=== PATIENT | female | born 1980 | race Caucasian/White ===

== ENCOUNTER 2016-11-25 09:45 | Outpatient (CLI) | payer OTHER ==
--- NOTE | 2016-11-25 10:31 | DIAGNOSTIC IMAGING REPORT ---
PROCEDURE: XR LUMBAR SPINE 5 VIEWS INDICATION: LOW BACK PAIN, R HIP PAIN, INTERMIT R RADIC X 2 YRS TECHNIQUE: Five views. COMPARISON: None. FINDINGS: Mild spondylosis at L1-2 with degenerative spur formation. IMPRESSION: 1. Mild spondylosis L1-2
--- NOTE | 2016-11-25 10:32 | DIAGNOSTIC IMAGING REPORT ---
PROCEDURE: XR HIP 2VW W W/O AP PELVIS-RT INDICATION: LOW BACK PAIN, R HIP PAIN, INTERMIT R RADIC X 2 YRS TECHNIQUE: AP view of the pelvis and hips with lateral view of the right hip. COMPARISON: None. FINDINGS: Right HIP: Osseous structures and joint spaces are normal. PELVIS: Osseous pelvis is normal. IMPRESSION: 1. Negative pelvis and right hip.
== END 2016-11-25 23:00 ==
LOC: XR SRH 09:45
DX: M47.816 Spondylosis without myelopathy or radiculopathy, lumbar region (principal); M25.551 Pain in right hip

== ENCOUNTER 2017-01-19 08:20 | Emergency (ER) | payer OTHER ==
--- NOTE | 2017-01-19 09:49 | DIAGNOSTIC IMAGING REPORT ---
PROCEDURE: CT ABDOMEN/PELVIS W/O CONTRAST INDICATION: ABDO PAIN, HX OF HYSTERECTOMY TECHNIQUE: Axial CT images were obtained through the abdomen and pelvis without IV contrast. Coronal and sagittal reformations were created. COMPARISON: 04/28/2012 FINDINGS: Clear lung bases. Normal sized heart. No hiatal hernia. Status post cholecystectomy. The unenhanced appearance of the liver, adrenal glands, kidneys, pancreas and spleen is normal. No intrarenal, ureteral calculi, or hydronephrosis. The abdominal aorta is normal in its course and caliber. There are no suspicious calcifications, retroperitoneal adenopathy or masses. The stomach, upper bowel loops, and mesentery are normal. Intact anterior abdominal wall. No free fluid or inflammation. Status post hysterectomy and right oophorectomy. The left ovary appears normal. The unenhanced appearance of the urinary bladder, pelvic vessels, and pelvic bowel loops is normal. Normal appendix. No suspicious calcifications, free pelvic fluid or mass. Intact osseous structures. IMPRESSION: 1. No acute process. 2. Status post hysterectomy and cholecystectomy. 3. Findings called to the emergency room. All CT scans at this facility use dose modulation, iterative reconstruction, and/or weight-based dosing when appropriate to reduce radiation dose to as low as reasonably achievable.
--- NOTE | 2017-01-19 11:51 | ED CLINICAL REPORT ---
Clinical Report - Physicians/Mid Levels [facility] [address] [place] [address] 01/19/2017 8:21 Patient: AFIA BAIRD Arrived- By private vehicle. Historian- patient. HISTORY OF PRESENT ILLNESS Chief Complaint: ABDOMINAL PAIN. This started today and is still present (staying the same). It was abrupt in onset and has been intermittent but is not gone now. At its maximum, severity described as moderate. When seen in the E.D., severity described as moderate. Modifying factors- worsened by movement and walking. Relieved by rest. It is described as sharp. No radiation. It is described as located in the left lower quadrant. The patient has had nausea. No loss of appetite, vomiting or diarrhea. No additional abdominal pain. (reports some discomfort after urinating and reports still having the urge to urinate after voiding). No recent travel. Similar symptoms previously: None. Recent medical care: Not recently seen/assessed. REVIEW OF SYSTEMS No constipation, black stools, bloody stools, fever or chest pain. No difficulty breathing or skin rash. All systems otherwise negative, except as recorded above. PAST HISTORY See nurses notes. Medications: DHEA Oral. 5HTP. Ibuprofen Oral. Muscle Relaxant. Topamax Oral. Allergies: No Known Drug Allergy. SOCIAL HISTORY Never smoker. Occasional alcohol use. No drug use. No recent travel. Is a local resident. ADDITIONAL NOTES The nursing notes have been reviewed. PHYSICAL EXAM Vital Signs: 01/19/2017 08:30 BP: 134/84. HR: 76. RR: 18. O2 saturation: 97%. Temp: 97.7 F. Blood pressure normal. Oxygen saturation normal. Appearance: Alert. Oriented X3. No acute distress. (pleasant, cooperative, non-toxic). Eyes: Pupils equal, round and reactive to light. Eyes normal inspection. (glasses). CVS: Normal heart rate and rhythm. Heart sounds normal. Pulses normal. Respiratory: No respiratory distress. Breath sounds normal. Chest nontender. Abdomen: Soft and nontender. Bowel sounds normal. No mass. Back: Normal inspection. No CVA tenderness. Skin: Skin warm and dry. Normal skin color. No rash. Normal skin turgor. Extremities: Extremities exhibit normal ROM. No lower extremity edema. LABS, X-RAYS, AND EKG Abdominal CT: PROCEDURE: CT ABDOMEN/PELVIS W/O CONTRAST INDICATION: ABDO PAIN, HX OF HYSTERECTOMY TECHNIQUE: Axial CT images were obtained through the abdomen and pelvis without IV contrast. Coronal and sagittal reformations were created. COMPARISON: 04/28/2012 FINDINGS: Clear lung bases. Normal sized heart. No hiatal hernia. Status post cholecystectomy. The unenhanced appearance of the liver, adrenal glands, kidneys, pancreas and spleen is normal. No intrarenal, ureteral calculi, or hydronephrosis. The abdominal aorta is normal in its course and caliber. There are no suspicious calcifications, retroperitoneal adenopathy or masses. The stomach, upper bowel loops, and mesentery are normal. Intact anterior abdominal wall. No free fluid or inflammation. Status post hysterectomy and right oophorectomy. The left ovary appears normal. The unenhanced appearance of the urinary bladder, pelvic vessels, and pelvic bowel loops is normal. Normal appendix. No suspicious calcifications, free pelvic fluid or mass. Intact osseous structures. IMPRESSION: 1. No acute process. 2. Status post hysterectomy and cholecystectomy. Study type: abdomen and pelvis. Abdominal CT performed without contrast. The study was independently viewed by me, interpreted by the radiologist and discussed with the radiologist. Pelvic Sonogram: An ovarian cyst is present. No intrauterine . normal flow. no torsion. The study was independently viewed by me and interpreted contemporaneously by me. Laboratory Tests: UA-Culture if indicated: (PRICE: 01/19/2017 09:20) ( MsgRcvd 01/19/2017 09:39) Final results Test Result Flag Units (Reference) URINE COLOR STRAW URINE APPEARANCE CLEAR URINE GLUCOSE NEGATIVE (NEGATIVE) URINE BILIRUBIN NEGATIVE (NEGATIVE) URINE KETONE NEGATIVE (NEGATIVE) URINE SPECIFIC GRAVITY <= 1.005 L (1.010-1.030) URINE PH 7.0 (5.0-8.0) URINE PROTEIN NEGATIVE (NEGATIVE) URINE UROBILINOGEN 0.2 EU/dL (0.2-1.0) URINE NITRITE NEGATIVE (NEGATIVE) URINE BLOOD NEGATIVE (NEGATIVE) URINE LEUK ESTERASE NEGATIVE (NEGATIVE) URINE RBC NONE SEEN rbc/hpf (0-1) URINE WBC NONE SEEN wbc/hpf (0-1) URINE EPITHELIAL CELLS 1-3 EPI/hpf (0-5) URINE BACTERIA MODERATE (2+ TO 3+) (NONE SEEN) URINE COMMENT CULTURE INDICATED URINE CULTURES ARE SET-UP BASED ON THE FOLLOWING CRITERIA:POSITIVE NITRITEPOSITIVE LEUKOCYTE ESTERASEGREATER THAN 10 WHITE BLOOD CELLSMODERATE (2+) OR GREATER BACTERIA Urine: (PRICE: 01/19/2017 09:20) [facility] [place] [facility] Final results Test Result Flag Units (Reference) URINE NEGATIVE CBC w Diff: (PRICE: 01/19/2017 09:30) ( [facility] [place] 09[facility]53[facility] Final results Test Result Flag Units (Reference) WHITE BLOOD COUNT 7.7 K/uL (4.5-11.5) RED BLOOD COUNT 4.35 M/uL (4.00-5.20) HEMOGLOBIN 14.4 gm/dL (12.0-16.0) HEMATOCRIT 41.5 % (36.0-46.0) MEAN CELL VOLUME 96 fL (80-100) MEAN CORPUSCULAR HGB 33 pg (26-34) MEAN CORPUSCULAR HGB CONC 35 g/dL (31-37) RED CELL DISTRIBUTION WIDTH 12.1 % (11.6-14.8) PLATELET COUNT 289 K/uL (150-400) NEUTROPHIL % 61.6 % (50-75) LYMPH % 31.5 % (25-40) MONO % 4.7 % (3-14) EOSINOPHIL % 2.0 % (0-4) BASOPHIL % 0.2 % (0-2) CMP: (PRICE: 01/19/2017 09:30) ( [facility] [place] 10:01) Final results Test Result Flag Units (Reference) GLUCOSE 96 mg/dL (70-110) BUN 12 mg/dL (7-18) CREATININE 0.8 mg/dL (0.6-1.3) Estimated GFR >60 mL/min Estimated GFR- >60 mL/min Note: Persistent reduction over 3 months in eGFR<60 mL/min/1.73 m2 defines CKD. Patients with eGFR values>=60 mL/min/1.73 m2 may also have CKD if evidence ofpersistent proteinuria. Additional information may be foundat [email or web address]. SODIUM 140 mmol/L (136-145) POTASSIUM 3.7 mmol/L (3.5-5.1) CHLORIDE 106 mmol/L (98-107) CARBON DIOXIDE 24 mmol/L (21-32) CALCIUM 9.0 mg/dL (8.5-10.1) TOTAL PROTEIN 7.3 g/dL (6.4-8.2) ALBUMIN 3.8 g/dL (3.3-5.0) BILIRUBIN, TOTAL 0.5 mg/dL (0.0-1.0) ALKALINE PHOSPHATASE 89 U/L (46-116) AST (SGOT) 17 U/L (15-37) ALT (SGPT) 18 U/L (12-78) LIPASE 117 U/L (73-393) . PROGRESS AND PROCEDURES Course of Care: the patient is a pleasant 36-year-old female presented for evaluation of left lower quadrant abdominal pain. The patient is resting in bed and in no acute distress. Patient is nontoxic. Differential diagnoses at this time includes urinary tract infection, ovarian cysts, and renal colic. Do not feel patient has ovarian torsion. Do not feel patient has dissecting aortic aneurysm. I discussion with patient in regards to ultrasound versus CT scan of the abdomen and pelvis. Patient elected for CT scan of the abdomen and pelvis. Patient reports that the pain she is currently experiencing is different from the cyst pain that she's had in the past. Patient reports having a history of hysterectomy. Do not feel there is a need to wait for urine test at this time. Laboratory studies have been ordered. Patient is agreeable to the treatment and plan. the patient's CT scan does not show any acute abnormalities. The ovaries noted to be slightly high up on CT scan however no significant abnormalities again noted. The patient'berlin was not significantly improved with the pain medication provided. Toradol was been given. Because the blood flow to the ovary has not been completely evaluated with CT scan, feel that torsion is still on the differential diagnosis. I discussion with patient in regards toultrasound of theovary. Patient is agreeable to this. Because the patient's left ovary is the only one that she notes to be left, do not patient's to havetreatment for menopause. Ultrasound ordered. Workup does not show any acute abdomen maladies except for corpus luteal cyst which isotherwise physiologically normal. Patient's pain is significantly improved. Patient is tolerating by mouth hydration and crackers with sandwich. Patient is smiling and in no acute distress. We had a discussion in regards to the recent snowfall in the area. Do not fill patient needs to be admitted to the hospital require further emergency department workup/evaluation. Discussed with patient workup diagnosis, home care, follow-up, and return precautions. All questions have been answered. The patient expressed understanding of these instructions and was agreeable to them. Disposition: Discharged. Condition: good. CLINICAL IMPRESSION Acute left lower quadrant abdominal pain. 01/19/2017 08:30 BP: 134/84. HR: 76. RR: 18. O2 saturation: 97%. Temp: 97.7 F. Blood pressure normal. Oxygen saturation normal. Single corpus luteum left ovarian cyst. INSTRUCTIONS Warnings: GENERAL WARNINGS: Return or contact your physician immediately if your condition worsens or changes unexpectedly, if not improving as expected, or if other problems arise. SPECIFICALLY, return if you develop pain, fever, vomiting, the inability to keep fluids down, blood in vomitus, blood in diarrhea, fainting or lightheadedness. Your Current Medications: CONTINUE TAKING THE FOLLOWING MEDICATIONS: 5HTP*. DHEA Oral. Ibuprofen Oral. Muscle Relaxant*. Topamax Oral. Prescription Medications: Motrin 600 mg tablets: take 1 tablet orally every 6 hours as needed for pain, stiffness or swelling. Dispense thirty (30). No refill. Substitution is permissible. (take with food) Percocet 5 mg/325 mg: take 1 tablet orally every 6 hours. Dispense ten (10). No refill. Substitution is permissible. Follow-up: Return to the emergency department as needed. Follow up with your doctor in three days. Reason for referral: recheck today's concerns. Summary of care provided to patient via paper. Screening today revealed the patient's blood pressure to be in the normal range. The patient should follow up with a primary care provider for blood pressure management. Understanding of the discharge instructions verbalized by patient. (Electronically signed by Chris Louis Dr. 01/21/2017 1:35)
--- NOTE | 2017-01-19 11:51 | ED NURSING NOTES ---
Clinical Report - Nurses [place] [address] [place] [address] 01/19/2017 8:21 [id number] Triage time 08:Jan 19 2017. Acuity: LEVEL 3. Chief Complaint: ABDOMINAL PAIN and NAUSEA. ARTEMIO COMA SCORE: Artemio Coma Scale: 15- eyes open spontaneously (4); best verbal response- oriented x 4 (5); best motor response- obeys commands (6). --08:36 Jeanne Fatima R.N. 08:30 01/19/17. BP: 134/84. HR: 76. RR: 18. O2 saturation: 97%. Temp: 97.7 F. Pain level now 5/10. --08:36 Jeanne Fatima R.N. Weight: 130.6 kg. Height/Length: 67 inches. BMI: 45.1. --08:35 Jeanne Fatima R.N. Medications Topamax Oral. --08:31 Jeanne Fatima R.N. Muscle Relaxant. --08:32 Jeanne Fatima R.N. Ibuprofen Oral. --08:32 Jeanne Fatima R.N. 5HTP. --08:32 Jeanne Fatima R.N. DHEA Oral. --08:32 Jeanne Fatima R.N. Allergies No Known Drug Allergy. --08:33 Jeanne Fatima R.N. History Arrived by private vehicle. Historian: patient. Accompanied by family. The patient has had nausea and moderate, colicky, constant abdominal pain. The pain is described as located in the LLQ and associated with nausea. No vomiting, diarrhea or constipation. Treatment BAG FILLER: None. PAST MEDICAL HX: Immunizations: up-to-date. SOCIAL HX: Never smoker. Occasional alcohol use; consumes beer occasionally. Last drink was 1 months ago. No drug use. No known contact with a sick individual. SELF HARM ASSESSMENT: A self harm assessment was performed. The patient answered "no" to the question "Have you recently felt down, depressed, or hopeless?" and "Do you have thoughts of harming or killing yourself?". FALL RISK ASSESSMENT: Fall risk assessment completed. No fall risk identified. NUTRITIONAL RISK ASSESSMENT: The nutritional risk assessment revealed no deficiencies. FUNCTIONAL ASSESSMENT: Functional assessment: no impairments noted. LEARNING NEEDS ASSESSMENT: The learning needs assessment revealed no barriers. ABUSE ASSESSMENT: Abuse assessment: (yes) The patient was asked "Do you feel safe in your home?". SKIN INTEGRITY ASSESSMENT: Skin integrity risk assessment completed. No skin integrity risk identified. --08:36 Jeanne Fatima R.N. PROBLEMS: Spinal Stenosis. Buldging disk . Fibromyalgia. Back Pain. LNMP - Last Normal Menstrual Period. Cholelithiasis. Gastroesophageal Reflux Disease. Immunizations. --08:34 Jeanne Fatima R.N. ADDITIONAL SURGERIES: Cholecystectomy. Hysterectomy. Tubal Ligation. --08:34 Jeanne Fatima R.N. Interventions ID band on patient. --08:36 Jeanne Fatima R.N. PHYSICAL ASSESSMENT Ambulatory to room. GENERAL / NEURO / PSYCH: Alert. Oriented X 4. Appears in pain. HEENT: Mucous membranes are pink. RESPIRATORY: Respirations not labored. Breath sounds within normal limits. CVS: Normal sinus rhythm noted. Capillary refill less than 2 seconds. GI / : Abdominal tenderness in the left lower quadrant. Bowel sounds within normal limits. ( last BM this am states normal for her). SKIN: Skin is warm and dry. --08:37 Jeanne Fatima R.N. NURSING PROGRESS NOTES The initial plan of care for this patient includes an assessment with efforts to address patient positioning and appropriate ambient lighting; impairment of the gastrointestinal system. Pulse oximeter and NIBP monitor placed on patient. Patient gowned. Head of bed elevated (45). Reassurance given. Call light placed in reach. Side rails up x 1. Bed placed in lowest position. Brakes of bed on. --08:38 Jeanne Fatima R.N. 09:40 01/19/2017 Site #1 started via IV in the right antecubital space with an 20g angiocath, with aseptic technique and good blood return; one attempt. Blood drawn: rainbow set. Labeled in the presence of the patient and sent to the lab. Saline lock flushed with 10 mL saline. --10:05 Jeanne Fatima R.N. 09:40 01/19/2017 Started bag #1 1000 mL IV Fluids IV NS (Saline); at 999 mL/hr over 1 hour(s) via site #1 via IV pump. Allergies verified and confirmed 5 rights. IV patency established. IV site checked: no pain, redness, or swelling. IV flushed thoroughly pre- and post-medication administration. --10:05 Jeanne Fatima R.N. 09:40 01/19/2017 Zofran (Ondansetron HCl) IVP 4 mg given over 2 minute(s) via site #1. Allergies verified and confirmed 5 rights. IV patency established. IV site checked: no pain, redness, or swelling. IV flushed thoroughly pre- and post-medication administration. --10:05 Jeanne Fatima R.N. 09:50 01/19/2017 Dilaudid (HYDROmorphone HCl PF) IVP 0.5 mg given over 2 minute(s) via site #1. Allergies verified, confirmed 5 rights and sedative warning given to the patient and patient's vat cleaner. IV patency established. IV site checked: no pain, redness, or swelling. IV flushed thoroughly pre- and post-medication administration. --10:05 Jeanne Fatima R.N. 10:00 01/19/17. Clean catch urine collected with return of yellow-colored clear urine; sample sent to lab for urinalysis. Specimen labeled in the presence of the patient ( negative). --10:07 Jeanne Fatima R.N. 10:08 01/19/2017 Toradol IVP 30 mg given over 2 minute(s) via site #1. Allergies verified and confirmed 5 rights. IV patency established. IV site checked: no pain, redness, or swelling. IV flushed thoroughly pre- and post-medication administration. --10:13 Jeanne Fatima R.N. 10:30 01/19/17. BP: 106/66. HR: 71. RR: 18. O2 saturation: 99%. 09:30 01/19/17. BP: 131/73. HR: 83. RR: 18. O2 saturation: 98%. --12:13 Jeanne Fatima R.N. 10:16 01/19/2017 IV Fluids IV NS Discontinued: bag #1 infused. Total amount infused: 1000 mL. IV patency established. IV site checked: no pain, redness, or swelling. IV flushed thoroughly. --12:16 Jeanne Fatima R.N. 12:00 01/19/2017 Site #1 removed upon discharge. Catheter intact. Pressure dressing applied. --12:16 Jeanne Fatima R.N. DISPOSITION / DISCHARGE Departure time: 12:12 Jan 19 2017. Condition at departure: improved. No learning barriers present. Discharge instructions provided and reviewed with the patient. Reviewed warnings. Reviewed medication(s). Treatments reviewed. Reviewed referrals. Patient verbalized understanding. Written instructions provided in Maori. The patient was discharged home and accompanied by spouse. She left the Emergency Department ambulatory and via private vehicle. Spouse driving. --12:12 Jeanne Fatima R.N. 12:10 01/19/17. BP: 105/66. HR: 71. RR: 18. O2 saturation: 99%. Temp: 98.4 F. Pain level now 03/26. --12:12 Jeanne Fatima R.N. Locked/Released at 01/19/2017 19:02 by Jeanne Fatima R.N.
--- NOTE | 2017-01-19 11:51 | ED NURSING NOTES ---
Clinical Report - Nurses [place] [address] [place] [address] 01/19/2017 8:21 [id number] Triage time 08:Jan 19 2017. Acuity: LEVEL 3. Chief Complaint: ABDOMINAL PAIN and NAUSEA. ARTEMIO COMA SCORE: Artemio Coma Scale: 15- eyes open spontaneously (4); best verbal response- oriented x 4 (5); best motor response- obeys commands (6). --08:36 Jeanne Fatima R.N. 08:30 01/19/17. BP: 134/84. HR: 76. RR: 18. O2 saturation: 97%. Temp: 97.7 F. Pain level now 5/10. --08:36 Jeanne Fatima R.N. Weight: 130.6 kg. Height/Length: 67 inches. BMI: 45.1. --08:35 Jeanne Fatima R.N. Medications Topamax Oral. --08:31 Jeanne Fatima R.N. Muscle Relaxant. --08:32 Jeanne Fatima R.N. Ibuprofen Oral. --08:32 Jeanne Fatima R.N. 5HTP. --08:32 Jeanne Fatima R.N. DHEA Oral. --08:32 Jeanne Fatima R.N. Allergies No Known Drug Allergy. --08:33 Jeanne Fatima R.N. History Arrived by private vehicle. Historian: patient. Accompanied by family. The patient has had nausea and moderate, colicky, constant abdominal pain. The pain is described as located in the LLQ and associated with nausea. No vomiting, diarrhea or constipation. Treatment MEDICARE SALES REPRESENTATIVE: None. PAST MEDICAL HX: Immunizations: up-to-date. SOCIAL HX: Never smoker. Occasional alcohol use; consumes beer occasionally. Last drink was 1 months ago. No drug use. No known contact with a sick individual. SELF HARM ASSESSMENT: A self harm assessment was performed. The patient answered "no" to the question "Have you recently felt down, depressed, or hopeless?" and "Do you have thoughts of harming or killing yourself?". FALL RISK ASSESSMENT: Fall risk assessment completed. No fall risk identified. NUTRITIONAL RISK ASSESSMENT: The nutritional risk assessment revealed no deficiencies. FUNCTIONAL ASSESSMENT: Functional assessment: no impairments noted. LEARNING NEEDS ASSESSMENT: The learning needs assessment revealed no barriers. ABUSE ASSESSMENT: Abuse assessment: (yes) The patient was asked "Do you feel safe in your home?". SKIN INTEGRITY ASSESSMENT: Skin integrity risk assessment completed. No skin integrity risk identified. --08:36 Jeanne Fatima R.N. PROBLEMS: Spinal Stenosis. Buldging disk . Fibromyalgia. Back Pain. LNMP - Last Normal Menstrual Period. Cholelithiasis. Gastroesophageal Reflux Disease. Immunizations. --08:34 Jeanne Fatima R.N. ADDITIONAL SURGERIES: Cholecystectomy. Hysterectomy. Tubal Ligation. --08:34 Jeanne Fatima R.N. Interventions ID band on patient. --08:36 Jeanne Fatima R.N. PHYSICAL ASSESSMENT Ambulatory to room. GENERAL / NEURO / PSYCH: Alert. Oriented X 4. Appears in pain. HEENT: Mucous membranes are pink. RESPIRATORY: Respirations not labored. Breath sounds within normal limits. CVS: Normal sinus rhythm noted. Capillary refill less than 2 seconds. GI / : Abdominal tenderness in the left lower quadrant. Bowel sounds within normal limits. ( last BM this am states normal for her). SKIN: Skin is warm and dry. --08:37 Jeanne Fatima R.N. NURSING PROGRESS NOTES The initial plan of care for this patient includes an assessment with efforts to address patient positioning and appropriate ambient lighting; impairment of the gastrointestinal system. Pulse oximeter and NIBP monitor placed on patient. Patient gowned. Head of bed elevated (45). Reassurance given. Call light placed in reach. Side rails up x 1. Bed placed in lowest position. Brakes of bed on. --08:38 Jeanne Fatima R.N. 09:40 01/19/2017 Site #1 started via IV in the right antecubital space with an 20g angiocath, with aseptic technique and good blood return; one attempt. Blood drawn: rainbow set. Labeled in the presence of the patient and sent to the lab. Saline lock flushed with 10 mL saline. --10:05 Jeanne Fatima R.N. 09:40 01/19/2017 Started bag #1 1000 mL IV Fluids IV NS (Saline); at 999 mL/hr over 1 hour(s) via site #1 via IV pump. Allergies verified and confirmed 5 rights. IV patency established. IV site checked: no pain, redness, or swelling. IV flushed thoroughly pre- and post-medication administration. --10:05 Jeanne Fatima R.N. 09:40 01/19/2017 Zofran (Ondansetron HCl) IVP 4 mg given over 2 minute(s) via site #1. Allergies verified and confirmed 5 rights. IV patency established. IV site checked: no pain, redness, or swelling. IV flushed thoroughly pre- and post-medication administration. --10:05 Jeanne Fatima R.N. 09:50 01/19/2017 Dilaudid (HYDROmorphone HCl PF) IVP 0.5 mg given over 2 minute(s) via site #1. 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 IV patency established. IV site checked: no pain, redness, or swelling. IV flushed thoroughly pre- and post-medication administration. --10:05 Jeanne Fatima R.N. 10:00 01/19/17. Clean catch urine collected with return of yellow-colored clear urine; sample sent to lab for urinalysis. Specimen labeled in the presence of the patient ( negative). --10:07 Jeanne Fatima R.N. 10:08 01/19/2017 Toradol IVP 30 mg given over 2 minute(s) via site #1. Allergies verified and confirmed 5 rights. IV patency established. IV site checked: no pain, redness, or swelling. IV flushed thoroughly pre- and post-medication administration. --10:13 Jeanne Fatima R.N. 10:30 01/19/17. BP: 106/66. HR: 71. RR: 18. O2 saturation: 99%. 09:30 01/19/17. BP: 131/73. HR: 83. RR: 18. O2 saturation: 98%. --12:13 Jeanne Fatima R.N. 10:16 01/19/2017 IV Fluids IV NS Discontinued: bag #1 infused. Total amount infused: 1000 mL. IV patency established. IV site checked: no pain, redness, or swelling. IV flushed thoroughly. --12:16 Jeanne Fatima R.N. 12:00 01/19/2017 Site #1 removed upon discharge. Catheter intact. Pressure dressing applied. --12:16 Jeanne Fatima R.N. DISPOSITION / DISCHARGE Departure time: 12:12 Jan 19 2017. Condition at departure: improved. No learning barriers present. Discharge instructions provided and reviewed with the patient. Reviewed warnings. Reviewed medication(s). Treatments reviewed. Reviewed referrals. Patient verbalized understanding. Written instructions provided in Hebrew. The patient was discharged home and accompanied by spouse. She left the Emergency Department ambulatory and via private vehicle. Spouse driving. --12:12 Jeanne Fatima R.N. 12:10 01/19/17. BP: 105/66. HR: 71. RR: 18. O2 saturation: 99%. Temp: 98.4 F. Pain level now 03/26. --12:12 Jeanne Fatima R.N. Locked/Released at 01/19/2017 19:02 by Jeanne Fatima R.N.
--- NOTE | 2017-01-19 11:52 | ED ORDER SUMMARY ---
..... Patient: AFIA BAIRD OrderSheet [facility] VisitID: [id number] [address] [place] [address] 36y, F Registration Date/Time: 01/19/2017 ORDER SHEET Weight: 130.6 kg Allergies: No Known Drug Allergy GENERAL ORDERS: Serum Quantitative Urgent (08:59 01/19/2017 Isac Durant) (Ack 9:05 HANoecarlota) (Cancelled: Duplicate Order9:09 Isac Durant) UA-Culture if indicated Urgent (08:59 01/19/2017 Isac Durant) (Ack 9:05 HANoedaraner) (10:06 LWhalen R.N.) CBC w Diff Urgent (08:59 01/19/2017 Isac Durant) (Ack 9:05 Lucas) (10:06 LWhalen R.N.) CMP Urgent (08:59 01/19/2017 Isac Durant) (Ack 9:05 HANoerner) (10:06 LWhalen R.N.) Pulse oximeter (08:59 01/19/2017 Isac Durant) (Ack 9:05 HANoerner) (10:06 LWhalen R.N.) Lipase Urgent (08:59 01/19/2017 Isac Durant) (Ack 9:05 HANoerner) (10:06 LWhalen R.N.) CT Abd/Pel wo Cont Urgent (09:08 01/19/2017 Isac Durant) (Ack 9:09 HANoerner) (10:06 LWhalen R.N.) Urine Urgent (09:09 01/19/2017 Isac Durant) (Ack 9:10 HANoerner) (10:06 LWhalen R.N.) US Pelvic Complete Urgent (10:08 01/19/2017 Isac Durant) (Ack 10:11 KHoerner) (Cancelled: Duplicate Order11:52 Isac Durant) US Pelvic Complete w Transvag Urgent (11:52 01/19/2017 Isac Durant) (Ack 11:54 HANoerner) (11:54 KHoerner) MEDICATION ORDERS: IV FLUIDS: IV NS : initial bolus 1000 mL (1000 mL/hr), then none - for X1 (NOW) (08:58 01/19/2017 Isac Durant) (10:05 LWhalbebo R.N.) Zofran IV 4 mg (NOW) (08:59 01/19/2017 Isac Durant) (10:05 LWhalbebo R.N.) Morphine IV 4 mg (HIGH ALERT MEDICATION, NOW) (08:59 01/19/2017 Isac Durant) (Cancelled: Duplicate Order9:07 Isac Durant) Dilaudid IV 0.5 mg (once now. may repeat once in 15 minutes for pain > 5/10 for total of 1 mg) (09:07 01/19/2017 Isac Durant) (10:05 LWhalbebo R.N.) Toradol IV 30 mg (NOW) (10:03 01/19/2017 Isac Durant) (10:13 LWhalen R.N.) ORDER SHEET NOTES: [Electronically signed by Jeanne Fatima R.N. (19:02 01/19/2017)] [Electronically signed by Chris Louis Dr. (01:35 01/21/2017)] [Electronically locked/signed by Jeanne Fatima R.N. (19:02 01/19/2017)]
--- NOTE | 2017-01-19 11:52 | ED ORDER SUMMARY ---
..... Patient: AFIA BAIRD OrderSheet [facility] VisitID: [id number] [address] [place] [address] 36y, F Registration Date/Time: 01/19/2017 ORDER SHEET Weight: 130.6 kg Allergies: No Known Drug Allergy GENERAL ORDERS: Serum Quantitative Urgent (08:59 01/19/2017 Isac Durant) (Ack 9:05 HANoecarlota) (Cancelled: Duplicate Order9:09 Isac Durant) UA-Culture if indicated Urgent (08:59 01/19/2017 Isac Durant) (Ack 9:05 HANoedaraner) (10:06 LWhalen R.N.) CBC w Diff Urgent (08:59 01/19/2017 Isac Durant) (Ack 9:05 Lucas) (10:06 LWhalen R.N.) CMP Urgent (08:59 01/19/2017 Isac Durant) (Ack 9:05 HANoerner) (10:06 LWhalen R.N.) Pulse oximeter (08:59 01/19/2017 Isac Durant) (Ack 9:05 HANoerner) (10:06 LWhalen R.N.) Lipase Urgent (08:59 01/19/2017 Isac Durant) (Ack 9:05 HANoerner) (10:06 LWhalen R.N.) CT Abd/Pel wo Cont Urgent (09:08 01/19/2017 Isac Durant) (Ack 9:09 HANoerner) (10:06 LWhalen R.N.) Urine Urgent (09:09 01/19/2017 Isac Durant) (Ack 9:10 HANoerner) (10:06 LWhalen R.N.) US Pelvic Complete Urgent (10:08 01/19/2017 Isac Durant) (Ack 10:11 KHoerner) (Cancelled: Duplicate Order11:52 Isac Durant) US Pelvic Complete w Transvag Urgent (11:52 01/19/2017 Isac Durant) (Ack 11:54 HANoerner) (11:54 KHoerner) MEDICATION ORDERS: IV FLUIDS: IV NS : initial bolus 1000 mL (1000 mL/hr), then none - for X1 (NOW) (08:58 01/19/2017 Isac Durant) (10:05 LWhalbebo R.N.) Zofran IV 4 mg (NOW) (08:59 01/19/2017 Isac Durant) (10:05 LWhalbebo R.N.) Morphine IV 4 mg (HIGH ALERT MEDICATION, NOW) (08:59 01/19/2017 Isac Durant) (Cancelled: Duplicate Order9:07 Isac Durant) Dilaudid IV 0.5 mg (once now. may repeat once in 15 minutes for pain > 5/10 for total of 1 mg) (09:07 01/19/2017 Isac Durant) (10:05 LWhalbebo R.N.) Toradol IV 30 mg (NOW) (10:03 01/19/2017 Isac Durant) (10:13 LWhalen R.N.) ORDER SHEET NOTES: [Electronically signed by Jeanne Fatima R.N. (19:02 01/19/2017)] [Electronically signed by Chris Louis Dr. (01:35 01/21/2017)] [Electronically locked/signed by Jeanne Fatima R.N. (19:02 01/19/2017)]
--- NOTE | 2017-01-19 13:18 | DIAGNOSTIC IMAGING REPORT ---
PROCEDURE: US COMPLETE PELVIC W/TRANSVAG INDICATION: LLQ ABDO PAIN TECHNIQUE: Transabdominal and endovaginal alvarado scale and color Doppler sonographic images of the female pelvis were obtained. COMPARISON: CT performed the same day FINDINGS: TRANSABDOMINAL SCANS: The uterus is surgically absent. The vaginal cuff appears normal. The left ovary has a normal follicular echotexture. The right ovary is also surgically absent. No suspicious right adnexal masses or fluid collections. TRANSVAGINAL SCANS: Normal vaginal cuff. No cul-de-sac fluid. The left ovary measures a 2.8 by 2.4 x 3.2 cm. Corpus luteum measuring 1.7 cm is noted. The echotexture is normal. Color and spectral Doppler imaging demonstrate normal arterial and venous flow within the left ovarian stroma. No wan ovarian fluid. The right ovary is surgically absent. No right adnexal mass or fluid. IMPRESSION: 1. Normal left ovary without evidence for torsion. 2. Surgically absent uterus and right ovary. 3. No suspicious pelvic fluid or mass.
--- NOTE | 2017-01-21 01:35 | ED DISCHARGE INSTRUCTIONS ---
Patient: AFIA BAIRD General Instructions VisitID: [id number] [address] [place] [address] 36y, F Registration Date/Time: 01/19/2017 Acute left lower quadrant abdominal pain. 01/19/2017 08:30 BP: 134/84. HR: 76. RR: 18. O2 saturation: 97%. Temp: 97.7 F. Blood pressure normal. Oxygen saturation normal. Single corpus luteum left ovarian cyst. INSTRUCTIONS Warnings: GENERAL WARNINGS: Return or contact your physician immediately if your condition worsens or changes unexpectedly, if not improving as expected, or if other problems arise. SPECIFICALLY, return if you develop pain, fever, vomiting, the inability to keep fluids down, blood in vomitus, blood in diarrhea, fainting or lightheadedness. Your Current Medications: CONTINUE TAKING THE FOLLOWING MEDICATIONS: 5HTP*. DHEA Oral. Ibuprofen Oral. Muscle Relaxant*. Topamax Oral. Prescription Medications: Motrin 600 mg tablets: take 1 tablet orally every 6 hours as needed for pain, stiffness or swelling. Dispense thirty (30). No refill. Substitution is permissible. (take with food) Percocet 5 mg/325 mg: take 1 tablet orally every 6 hours. Dispense ten (10). No refill. Substitution is permissible. Follow-up: Return to the emergency department as needed. Follow up with your doctor in three days. Reason for referral: recheck today's concerns. Summary of care provided to patient via paper. Screening today revealed the patient's blood pressure to be in the normal range. The patient should follow up with a primary care provider for blood pressure management. Understanding of the discharge instructions verbalized by patient. ADDITIONAL INFORMATION Abdominal Pain, Unknown Cause (Female) The exact cause of your abdominal (stomach) pain is not certain. This does not mean that this is something to worry about, or the right tests were not done. Everyone likes to know the exact cause of the problem, but sometimes with abdominal pain, there is no clear-cut cause, and this could be a good thing. The good news is that your symptoms can be treated, and you will feel better. Your condition does not seem serious now; however, sometimes the signs of a serious problem may take more time to appear. For this reason,it is important for you to watch for any new symptoms, problems,or worsening of your condition. Over the next few days, the abdominal pain may come and go, or be continuous. Other common symptoms can include nausea and vomiting. Sometimes it can be difficult to tell if you feel nauseous, you may just feel bad and not associate that feeling with nausea. Constipation, diarrhea, and a fever may go along with the pain. The pain may continue even if treated correctly over the following days. Depending on how things go, sometimes the cause can become clear and may require further or different treatment. Additional evaluations, medications, or tests may be needed. Home care Your health care provider may prescribe medications for pain, symptoms, or an infection. Follow the health care provider's instructions for taking these medications. General care Rest until your next exam. No strenuous activities. Try to find positions that ease discomfort. A small pillow placed on the abdomen may help relieve pain. Something warm on your abdomen (such as a heating pad) may help, but be careful not to burn yourself. Diet Do not force yourself to eat, especially if having cramps, vomiting, or diarrhea. Water is important so you do not get dehydrated. Soup may also be good. Sports drinks may also help, especially if they are not too acidic. Make sure you don't drink sugary drinks as this can make things worse. Take liquids in small amounts. Do not guzzle them. Caffeine sometimes makes the pain and cramping worse. Avoid dairy products if you have vomiting or diarrhea. Don't eat large amounts at a time. Wait a few minutes between bites. Eat a diet low in fiber (called a low-residue diet). Foods allowed include refined breads, white rice, fruit and vegetable juices without pulp, tender meats. These foods will pass more easily through the intestine. Avoid whole-grain foods, whole fruits and vegetables, meats, seeds and nuts, fried or fatty foods, dairy, alcohol and spicy foods until your symptoms go away. Follow-up care Follow up with your health care provider as instructed, or if your pain does not begin to improve in the next 24 hours. When to seek medical care Seek prompt medical care if any of the following occur: Pain gets worse or moves to the right lower abdomen New or worsening vomiting or diarrhea Swelling of the abdomen Unable to pass stool for more than three days Fever of 100.4F (38C) or higher, or as directed by your healthcare provider. Blood in vomit or bowel movements (dark red or black color) Jaundice (yellow color of eyes and skin) Weakness, dizziness Chest, arm, back, neck or jaw pain Unexpected vaginal bleeding or missed period Call 911 Call emergency services if any of the following occur: Trouble breathing Confusion Fainting or loss of consciousness Rapid heart rate Seizure Ovarian Cyst The ovary is a small organ located on each side of the uterus. During each menstrual cycle a tiny egg sac forms in the ovary. If the egg is released but does not occur, this sac usually dissolves. Sometimes, the sac may fill with fluid. It then enlarges into a painful cyst. Usually the cyst will rupture or shrink on its own. In either case, the pain gradually goes away over the next 1-3 days. If the cyst does not shrink or rupture, it may cause continued pain. Home Care: Rest in bed and avoid heavy exertion until you are feeling better. Heat to the lower abdomen usually helps (heating pad or hot packs -- a small towel soaked in hot water). You may use acetaminophen (Tylenol) or ibuprofen (Motrin, Advil) to control pain, unless another pain medicine was prescribed. [NOTE: If you have chronic liver or kidney disease or ever had a stomach ulcer or GI bleeding, talk with your doctor before using these medicines.] Follow Up: See your doctor within the next 2-3 days if your pain doesnt improve. Otherwise, follow up with your doctor after your next period or as directed by our staff. Get Prompt Medical Attention if any of the following occur: Pain worsens or fails to respond to the above measures Fever of 100.4F (38C) or higher, or as directed by your healthcare provider Heavy vaginal bleeding (soaking one pad an hour for three hours) You feel weak or dizzy Fainting Passage of a pink or alvarado tissue with menstrual bleeding Pelvic Pain, Uncertain Cause Based on your visit today, the exact cause of your pelvic pain is not certain. But your condition does not appear to be serious at this time. However, the signs of a serious problem may take more time to appear. Therefore, it is important for you to watch for any new symptoms or worsening of your condition. Home Care: Rest until you are feeling better. Avoid sexual intercourse until your pain goes away. You may use acetaminophen (Tylenol) or ibuprofen (Motrin, Advil) to control pain, unless another medicine was prescribed. [NOTE: If you have chronic liver or kidney disease or ever had a stomach ulcer or GI bleeding, talk with your doctor before using these medicines.] Follow Up with your doctor as advised. If a culture test was taken, call in two days for the results. If the culture is positive, you will be given more advice at that time. Otherwise, follow-up with your doctor or this facility as instructed. Get Prompt Medical Attention if any of the following occur: Fever of 100.4F (38C) or higher, or as directed by your healthcare provider Vaginal discharge Worsening pain Weakness, dizziness or fainting Unexpected vaginal bleeding or passage of alvarado or white tissue from the vagina Pain that moves to the right lower abdomen Ibuprofen Oral tablet What is this medicine? IBUPROFEN (eye BYOO proe fen) is a non-steroidal anti-inflammatory drug (NSAID). It is used for dental pain, fever, headaches or migraines, osteoarthritis, rheumatoid arthritis, or painful monthly periods. It can also relieve minor aches and pains caused by a cold, flu, or sore throat. How should I use this medicine? Take this medicine by mouth with a glass of water. Follow the directions on the prescription label. Take this medicine with food if your stomach gets upset. Try to not lie down for at least 10 minutes after you take the medicine. Take your medicine at regular intervals. Do not take your medicine more often than directed. A special MedGuide will be given to you by the pharmacist with each prescription and refill. Be sure to read this information carefully each time. Talk to your automatic edger regarding the use of this medicine in children. Special care may be needed. What side effects may I notice from receiving this medicine? Side effects that you should report to your doctor or health outdoor emergency care technician as soon as possible: allergic reactions like skin rash, itching or hives, swelling of the face, lips, or tongue black or bloody stools, blood in the urine or in vomit breathing problems changes in vision chest pain general ill feeling or flu-like symptoms nausea or vomiting redness, blistering, peeling or loosening of the skin, including inside the mouth slurred speech or weakness on one side of the body stomach pain unexplained weight gain or swelling unusually weak or tired yellowing of eyes or skin Side effects that usually do not require medical attention (report to your doctor or health outdoor emergency care technician if they continue or are bothersome): constipation or diarrhea dizziness gas or heartburn stomach upset What may interact with this medicine? Do not take this medicine with any of the following medications: cidofovir ketorolac methotrexate pemetrexed This medicine may also interact with the following medications: alcohol aspirin diuretics lithium other drugs for inflammation like prednisone warfarin What if I miss a dose? If you miss a dose, take it as soon as you can. If it is almost time for your next dose, take only that dose. Do not take double or extra doses. Where should I keep my medicine? Keep out of the reach of children. Store at room temperature between 15 and 30 degrees C (59 and 86 degrees F). Keep container tightly closed. Throw away any unused medicine after the expiration date. What should I tell my health care provider before I take this medicine? They need to know if you have any of these conditions: asthma cigarette smoker drink more than 3 alcohol containing drinks a day heart disease or circulation problems such as heart failure or leg edema (fluid retention) high blood pressure kidney disease liver disease stomach bleeding or ulcers an unusual or allergic reaction to ibuprofen, aspirin, other NSAIDS, other medicines, foods, dyes, or preservatives or trying to get breast-feeding What should I watch for while using this medicine? Tell your doctor or healthcare professional if your symptoms do not start to get better or if they get worse. This medicine does not prevent heart attack or stroke. In fact, this medicine may increase the chance of a heart attack or stroke. The chance may increase with longer use of this medicine and in people who have heart disease. If you take aspirin to prevent heart attack or stroke, talk with your doctor or health outdoor emergency care technician. Do not take other medicines that contain aspirin, ibuprofen, or naproxen with this medicine. Side effects such as stomach upset, nausea, or ulcers may be more likely to occur. Many medicines available without a prescription should not be taken with this medicine. This medicine can cause ulcers and bleeding in the stomach and intestines at any time during treatment. Ulcers and bleeding can happen without warning symptoms and can cause . To reduce your risk, do not smoke cigarettes or drink alcohol while you are taking this medicine. You may get drowsy or dizzy. Do not drive, use machinery, or do anything that needs mental alertness until you know how this medicine affects you. Do not stand or sit up quickly, especially if you are an older patient. This reduces the risk of dizzy or fainting spells. This medicine can cause you to bleed more easily. Try to avoid damage to your teeth and gums when you brush or floss your teeth. Oxycodone Hydrochloride, Acetaminophen Oral tablet What is this medicine? ACETAMINOPHEN; OXYCODONE (a set a PHILIP anna fen; ox i KOE done) is a pain reliever. It is used to treat mild to moderate pain. How should I use this medicine? Take this medicine by mouth with a full glass of water. Follow the directions on the prescription label. Take your medicine at regular intervals. Do not take your medicine more often than directed. Talk to your automatic edger regarding the use of this medicine in children. Special care may be needed. Patients over 65 years old may have a stronger reaction and need a smaller dose. What side effects may I notice from receiving this medicine? Side effects that you should report to your doctor or health outdoor emergency care technician as soon as possible: allergic reactions like skin rash, itching or hives, swelling of the face, lips, or tongue breathing difficulties, wheezing confusion light headedness or fainting spells severe stomach pain yellowing of the skin or the whites of the eyes Side effects that usually do not require medical attention (report to your doctor or health outdoor emergency care technician if they continue or are bothersome): dizziness drowsiness nausea vomiting What may interact with this medicine? alcohol antihistamines barbiturates like amobarbital, butalbital, butabarbital, methohexital, pentobarbital, phenobarbital, thiopental, and secobarbital benztropine drugs for bladder problems like solifenacin, trospium, oxybutynin, tolterodine, hyoscyamine, and methscopolamine drugs for breathing problems like ipratropium and tiotropium drugs for certain stomach or intestine problems like propantheline, homatropine methylbromide, glycopyrrolate, atropine, belladonna, and dicyclomine general anesthetics like etomidate, ketamine, nitrous oxide, propofol, desflurane, enflurane, halothane, isoflurane, and sevoflurane medicines for depression, anxiety, or psychotic disturbances medicines for sleep muscle relaxants naltrexone narcotic medicines (opiates) for pain phenothiazines like perphenazine, thioridazine, chlorpromazine, mesoridazine, fluphenazine, prochlorperazine, promazine, and trifluoperazine scopolamine tramadol trihexyphenidyl What if I miss a dose? If you miss a dose, take it as soon as you can. If it is almost time for your next dose, take only that dose. Do not take double or extra doses. Where should I keep my medicine? Keep out of the reach of children. This medicine can be abused. Keep your medicine in a safe place to protect it from theft. Do not share this medicine with anyone. Selling or giving away this medicine is dangerous and against the law. Store at room temperature between 20 and 25 degrees C (68 and 77 degrees F). Keep container tightly closed. Protect from light. This medicine may cause accidental overdose and if it is taken by other adults, children, or pets. Flush any unused medicine down the toilet to reduce the chance of harm. Do not use the medicine after the expiration date. What should I tell my health care provider before I take this medicine? They need to know if you have any of these conditions: brain tumor Crohn's disease, inflammatory bowel disease, or ulcerative colitis drink more than 3 alcohol containing drinks per day drug abuse or addiction head injury heart or circulation problems kidney disease or problems going to the bathroom liver disease lung disease, asthma, or breathing problems an unusual or allergic reaction to acetaminophen, oxycodone, other opioid analgesics, other medicines, foods, dyes, or preservatives or trying to get breast-feeding What should I watch for while using this medicine? Tell your doctor or health outdoor emergency care technician if your pain does not go away, if it gets worse, or if you have new or a different type of pain. You may develop tolerance to the medicine. Tolerance means that you will need a higher dose of the medication for pain relief. Tolerance is normal and is expected if you take this medicine for a long time. Do not suddenly stop taking your medicine because you may develop a severe reaction. Your body becomes used to the medicine. This does NOT mean you are addicted. Addiction is a behavior related to getting and using a drug for a non-medical reason. If you have pain, you have a medical reason to take pain medicine. Your doctor will tell you how much medicine to take. If your doctor wants you to stop the medicine, the dose will be slowly lowered over time to avoid any side effects. You may get drowsy or dizzy. Do not drive, use machinery, or do anything that needs mental alertness until you know how this medicine affects you. Do not stand or sit up quickly, especially if you are an older patient. This reduces the risk of dizzy or fainting spells. Alcohol may interfere with the effect of this medicine. Avoid alcoholic drinks. There are different types of narcotic medicines (opiates) for pain. If you take more than one type at the same time, you may have more side effects. Give your health care provider a list of all medicines you use. Your doctor will tell you how much medicine to take. Do not take more medicine than directed. Call emergency for help if you have problems breathing. The medicine will cause constipation. Try to have a bowel movement at least every 2 to 3 days. If you do not have a bowel movement for 3 days, call your doctor or health outdoor emergency care technician. Do not take Tylenol (acetaminophen) or medicines that have acetaminophen with this medicine. Too much acetaminophen can be very dangerous. Many nonprescription medicines contain acetaminophen. Always read the labels carefully to avoid taking more acetaminophen. You have been given the following additional information: Abdominal Pain, Unknown Cause, (Female) Ovarian Cyst Pelvic Pain, Unknown Cause Ibuprofen Oral tablet Oxycodone Hydrochloride, Acetaminophen Oral tablet (Electronically signed by Chris Louis Dr. 01/21/2017 1:35)
--- NOTE | 2017-01-21 01:35 | ED MED RECONCILIATION SUMMARY ---
Patient: AFIA BAIRD Medication Reconciliation Report [facility] VisitID: [id number] [address] [place] [address] 36y, F Registration Date/Time: 01/19/2017 Weight: 130.6 kg Height/Length: 67 in. BMI: 45.1 ALLERGIES: No Known Drug Allergy The patient's Home Medications are listed below: CONTINUE TAKING THE FOLLOWING MEDICATIONS: 5HTP DHEA Oral Ibuprofen Oral Muscle Relaxant Topamax Oral The source(s) of the original Home Medication information: Not obtained. The following Medications were given to the patient in the Emergency Department: IV NS IV Fluids bolus 0, then 999 mL/hr, administered: 01/19/2017 9:40:00 AM Zofran [IVP] IVP 4 mg, administered: 01/19/2017 9:40:00 AM Dilaudid [IVP] IVP 0.5 mg, administered: 01/19/2017 9:50:00 AM Toradol [IVP] IVP 30 mg, administered: 01/19/2017 10:08:00 AM The following Medications were prescribed to the patient: Motrin 600 mg tablets: take 1 tablet orally every 6 hours as needed for pain, stiffness or swelling. Dispense thirty (30). No refill. Substitution is permissible.(take with food) -- Chris Louis Dr. Percocet 5 mg/325 mg: take 1 tablet orally every 6 hours. Dispense ten (10). No refill. Substitution is permissible. -- Chris Louis Dr.
--- NOTE | 2017-01-21 01:35 | ED MAR SUMMARY ---
..... Medication Administration Record [facility] [address] [place] [address] Patient: AFIA BAIRD Visit ID: [id number] 36y, F Weight: 130.6 kg Height/Length: 67 in BMI: 45.1 ALLERGIES: No Known Drug Allergy Start 09:40 01/19/2017 Jeanne Fatima R.N., Stop 10:16 01/19/2017 Jeanne Fatima R.N. Medication Administered: IV NS (SALINE), Dose: IV Fluids over 1 hour(s), Rate: 999 mL/hr, Dispensed: 1000 mL bag, Site: #1 right AC. Medication Ordered: IV NS : initial bolus 1000 mL (1000 mL/hr), then none - for X1 (NOW). Given 09:40 01/19/2017 Jeanne Fatima R.N. Medication Administered: ZOFRAN [IVP] (ONDANSETRON HCL), Dose: 4 mg IVP over 2 minute(s), Site: #1 right AC. Medication Ordered: Zofran IV 4 mg (NOW). Given 09:50 01/19/2017 Jeanne Fatima R.N. Medication Administered: DILAUDID [IVP] (HYDROMORPHONE HCL PF), Dose: 0.5 mg IVP over 2 minute(s), Site: #1 right AC. Medication Ordered: Dilaudid IV 0.5 mg (once now. may repeat once in 15 minutes for pain > 5/10 for total of 1 mg). Given 10:08 01/19/2017 Jeanne Fatima R.N. Medication Administered: TORADOL [IVP], Dose: 30 mg IVP over 2 minute(s), Site: #1 right AC. Medication Ordered: Toradol IV 30 mg (NOW).
--- NOTE | 2017-01-21 01:35 | ED MED RECONCILIATION SUMMARY ---
Patient: AFIA BAIRD Medication Reconciliation Report [facility] VisitID: [id number] [address] [place] [address] 36y, F Registration Date/Time: 01/19/2017 Weight: 130.6 kg Height/Length: 67 in. BMI: 45.1 ALLERGIES: No Known Drug Allergy The patient's Home Medications are listed below: CONTINUE TAKING THE FOLLOWING MEDICATIONS: 5HTP DHEA Oral Ibuprofen Oral Muscle Relaxant Topamax Oral The source(s) of the original Home Medication information: Not obtained. The following Medications were given to the patient in the Emergency Department: IV NS IV Fluids bolus 0, then 999 mL/hr, administered: 01/19/2017 9:40:00 AM Zofran [IVP] IVP 4 mg, administered: 01/19/2017 9:40:00 AM Dilaudid [IVP] IVP 0.5 mg, administered: 01/19/2017 9:50:00 AM Toradol [IVP] IVP 30 mg, administered: 01/19/2017 10:08:00 AM The following Medications were prescribed to the patient: Motrin 600 mg tablets: take 1 tablet orally every 6 hours as needed for pain, stiffness or swelling. Dispense thirty (30). No refill. Substitution is permissible.(take with food) -- Chris Louis Dr. Percocet 5 mg/325 mg: take 1 tablet orally every 6 hours. Dispense ten (10). No refill. Substitution is permissible. -- Chris Louis Dr.
--- NOTE | 2017-01-21 01:35 | ED MAR SUMMARY ---
..... Medication Administration Record [facility] [address] [place] [address] Patient: AFIA BAIRD Visit ID: [id number] 36y, F Weight: 130.6 kg Height/Length: 67 in BMI: 45.1 ALLERGIES: No Known Drug Allergy Start 09:40 01/19/2017 Jeanne Fatima R.N., Stop 10:16 01/19/2017 Jeanne Fatima R.N. Medication Administered: IV NS (SALINE), Dose: IV Fluids over 1 hour(s), Rate: 999 mL/hr, Dispensed: 1000 mL bag, Site: #1 right AC. Medication Ordered: IV NS : initial bolus 1000 mL (1000 mL/hr), then none - for X1 (NOW). Given 09:40 01/19/2017 Jeanne Fatima R.N. Medication Administered: ZOFRAN [IVP] (ONDANSETRON HCL), Dose: 4 mg IVP over 2 minute(s), Site: #1 right AC. Medication Ordered: Zofran IV 4 mg (NOW). Given 09:50 01/19/2017 Jeanne Fatima R.N. Medication Administered: DILAUDID [IVP] (HYDROMORPHONE HCL PF), Dose: 0.5 mg IVP over 2 minute(s), Site: #1 right AC. Medication Ordered: Dilaudid IV 0.5 mg (once now. may repeat once in 15 minutes for pain > 5/10 for total of 1 mg). Given 10:08 01/19/2017 Jeanne Fatima R.N. Medication Administered: TORADOL [IVP], Dose: 30 mg IVP over 2 minute(s), Site: #1 right AC. Medication Ordered: Toradol IV 30 mg (NOW).
== END 2017-01-19 12:10 | disposition home or self-care (01) ==
LOC: ED SRH 08:20
DX: N83.12 Corpus luteum cyst of left ovary (principal); R10.32 Left lower quadrant pain; Z79.899 Other long term (current) drug therapy
CPT/HCPCS: 90004; 90100; 90469; 92235; 93070; 95059

== ENCOUNTER 2017-02-17 13:57 | Outpatient (CLI) | payer OTHER ==
--- NOTE | 2017-02-17 15:26 | DIAGNOSTIC IMAGING REPORT ---
PROCEDURE: US COMPLETE PELVIC W/TRANSVAG INDICATION: PELVIC PAIN TECHNIQUE: Transabdominal and endovaginal alvarado scale and color Doppler sonographic images of the female pelvis were obtained. COMPARISON: Pelvic ultrasound 01/19/2017 FINDINGS: TRANSABDOMINAL SCANS: The uterus is absent. TRANSVAGINAL SCANS: Right ovary is surgically absent. The left ovary is measuring 4.1 x 3.4 x 4.2 cm. There is a 1.9 cm follicle. There is also a 2.9 cm cyst that appears hemorrhagic. There is a trace of free fluid. IMPRESSION: 1. Left ovarian hemorrhagic cyst measuring 2.9 cm. There is also a 1.9 cm follicle.
== END 2017-02-17 23:00 ==
LOC: US SRH 13:57
DX: N83.202 Unspecified ovarian cyst, left side (principal); N83.00 Follicular cyst of ovary, unspecified side

== ENCOUNTER 2017-06-04 15:27 | Outpatient (CLI) | payer OTHER ==
--- NOTE | 2017-06-04 16:12 | DIAGNOSTIC IMAGING REPORT ---
PROCEDURE: XR THORACIC SPINE 2 VIEWS INDICATION: INJURY TECHNIQUE: Three views. COMPARISON: None. FINDINGS: Osseous structures and disc spaces are normal. No evidence of an acute process or fracture. IMPRESSION: 1. Negative thoracic spine.
--- NOTE | 2017-06-04 16:31 | DIAGNOSTIC IMAGING REPORT ---
PROCEDURE: XR RIBS BILATERAL INDICATION: INJURY, CONT. PAIN TECHNIQUE: Three views of the ribs COMPARISON: None. FINDINGS: Bilateral RIBS: No displaced rib fractures. No suspicious rib lesions. IMPRESSION: 1. Intact ribs.
== END 2017-06-04 23:00 ==
LOC: XR SRH 15:27
DX: R07.81 Pleurodynia (principal); M54.6 Pain in thoracic spine